=== PATIENT | female | born 1995 | race Caucasian/White ===

== ENCOUNTER → 2017-10-28 | Outpatient (CLI) | payer OTHER ==
[2017-10-28 13:13] LABS: HEP C IGG 13 YRS+OLDER_RFLX NEG (NEG)
== END | disposition home or self-care (01) ==
LOC: C.LAB1850 09:59
PROVIDERS: ATTEND Obstetrics & Gynecology
DX: Z11.3 Encounter for screening for infections with a predominantly sexual mode of transmission (principal); Z11.8 Encounter for screening for other infectious and parasitic diseases

== ENCOUNTER → 2017-10-28 | Outpatient (CLI) | payer OTHER | END | disposition home or self-care (01) | LOC: C.PAPS 11:37 | PROVIDERS: ATTEND Obstetrics & Gynecology | DX: Z01.419 Encounter for gynecological examination (general) (routine) without abnormal findings (principal) ==

== ENCOUNTER 2023-10-04 22:03 | Inpatient (IN) ==
[2023-10-04] MEDS ORDERED: LIDOCAINE 1% LOCAL 20 ML VIAL INFIL PRN (23:11)
[2023-10-04] MEDS ORDERED: OXYTOCIN 30 UNITS/NSS 30 UNITS/500 ML BAG IV PRN ×2 (23:11→23:13)
--- NOTE | 2023-10-04 23:19 | History & Physical Report ---
Date of Service October 04, 2023 Assessment & Plan (1) Large for gestational age fetus affecting management of mother: (2) SROM (spontaneous rupture of membranes): Plan 27 yo G1 at 38 4/7 wga admitted w/ srom VSS Fetus cat 1 labor - 2cm, ctx seen but pt not really feeling them. Discussed LGA baby w/ induction/augmentation process vs primary CS, risks of each including risk of shoulder dystocia. Also reviewed margin of error on US at this GA as well. Pt would like to try for vaginal delivery. Discussed expectant management, pit - will walk for a bit and if doesn't make change, she is ok to start pit GBS neg epidural prn History of Present Illness Chief Complaint: LOF Primary Care Provider: Mariola Parker MD 1 yo G1 at 38 4/7 wga presents w/ LOF since 930pm. Had a small gush and leaking since then. +FM; denies ctx, LOF, VB PNI: Suspected LGA Past DENTAL OFFICE MANAGER Hx: G1 regular cycles denies hx stis Allergies Allergy/AdvReac Type Severity Reaction Status Date / Time No Known Drug Allergies Allergy Verified 10/01/23 10:56 Home Medications Medication Instructions Recorded Confirmed Type prenat.vits,aron,ysl-ntcg-livau 1 tab PO DAILY 01/17/23 10/04/23 History Patient History Medical History (Updated 10/04/23 @ 23:17 by Anastasia Lyn MD) Varicella vaccination Migraine Sebaceous cyst Pilonidal cyst with abscess Dysmenorrhea Surgical History H/O wisdom tooth extraction Pilonidal cyst Sep 2012 Family History Grandfather (Paternal) Myocardial infarction Mother Anemia Thyroid disease Grandfather (Maternal) Hypertension Family/Other Breast cancer Colorectal cancer Ovarian cancer Other Cervical cancer Depression Dyslipidemia Endometriosis Gallbladder disease Uterine cancer Social History Smoking Status: Never smoker Second Hand Exposure: Yes; Do You Dip or Chew Tobacco: No; Hx Alcohol Use: No Hx Substance Use: No Preferred Language: German Communication Ability: Effective Visual Impairment: No Limitations Hearing Ability: Normal Television Equipment Operator Required: No Beliefs That Will Affect Care: None marital status: marital status details: Jai Haley (26) [phone] Current Living Situation: Spouse Current Living Situation Comment: lives with spouse, cat-spouse changing litter current occupational status: employed current occupation: [employer] Feels Safe at Home: Yes Safety Concerns: Feels Safe At This Time Childhood Exposure to Second-Hand Smoke: No Diet: regular caffeine: Yes Dental Care, Regularly: Yes Physical Activity Frequency: Daily Seatbelt Use: always Sunscreen Use: No Sexual Activity: has been sexually active within the last 12 months Physical Exam Genitourinary: OB Exam Abdomen: + vertex and + estimated weight (8-9) Manual OB Exam: + cervical dilation 2 cm, + cervical effacement 50%, + station - 2 and + amniotic fluid (+nitrazine, pooling, ferning) OB Exam Monitor Tracing: + external FHT monitor used, + external uterine monitor used (q4-7) and + category I (125/mod/+accel/-decel) Results & Data Vital Signs (Past 12 Hours) Vital Signs Temp Pulse Resp BP 10/04/23 22:29 79 122/72 10/04/23 22:22 98.6 F 18 Laboratory Results OB Labs: Blood Type A Positive 03/12/23 Antibody Screen NEGATIVE 03/12/23 Hemoglobin 11.9 g/dl (12.0-16.0) L 07/22/23 Hematocrit 36.2 % (37.0-47.0) L 07/22/23 Mean Corpuscular Volume 89.3 fL (80.0-100.0) 03/12/23 Platelet Count 272 K/uL (130-400) 03/12/23 Rubella IgG Antibody Immune (Immune) 03/12/23 Rapid Plasma Reagin Nonreactive (Nonreactive) 03/12/23 Hepatitis B Surface Antigen Neg (Neg) 12/07/19 Hepatitis B Surface Antigen. NON-REACTIVE (NON-REACTIVE) 03/12/23 Hepatitis C Antibody Neg (Neg) 12/07/19 Hepatitis C Antibody (EIA) NON-REACTIVE (NON-REACTIVE) 03/12/23 HIV (1&2) Ab and P24 Ag, 4th Gener Neg (Neg) 12/07/19 HIV (1&2) Ag and Ab Confirmation NON-REACTIVE (NON-REACTIVE) 03/12/23 Glucose 1 Hour 50 gm Load 122 mg/dl (70-130) 07/22/23 OB Optional Labs: Chlamydia trachomatis RNA Not Detected (NotDetected) 03/12/23 Neisseria gonorrhoeae RNA Not Detected (NotDetected) 03/12/23 Thyroid Stimulating Hormone (TSH) 2.647 uIu/ml (0.300-4.500) 01/20/23 Labs Reviewed: cf/sma-negative--mln Declines cfdna--mln declines afp--akh GBS neg Diagnostic Findings 09/16 EFW >98%, ant plac Coding Level of Care Code None Diagnoses Large for gestational age fetus affecting management of mother O36.60X0 SROM (spontaneous rupture of membranes)
[2023-10-04 23:39] LABS: Hematocrit (blood only) 34.4 % (37.0-47.0); Hemoglobin 11.7 g/dl (12.0-16.0); Mean Corpuscular Hemoglobin 31.3 pg (25.0-34.0); Mean Platelet Volume 10.6 fL (9.4-12.4); Platelet Count 222 K/uL (130-400); RDW Coefficient of Variation 13.2 % (11.5-14.5); RDW Standard Deviation 44.2 fL (36.4-46.3); Red Blood Count 3.74 M/uL (4.20-5.40); White Blood Count 7.73 K/ul (4.8-10.8)
[2023-10-05] MEDS: LACTATED RINGER'S 1,000 ML IV PRN ×3 (02:13→14:35)
[2023-10-05] MEDS ORDERED: fentANYL 2 MCG/ML BUPIVacaine 0.125%-NSS 100ML BAG ONE (03:53)
[2023-10-05] MEDS ORDERED: SODIUM CHLORIDE 0.9% PF INJ 10 ML VIAL ONE (03:53)
[2023-10-05] MEDS ORDERED: fentaNYL citrate PF 100 MCG/2 ML VIAL ONE (03:53)
[2023-10-05] MEDS ORDERED: ePHEDrine sulfate 50 MG/ML AMP ONE (03:53)
[2023-10-05] MEDS ORDERED: BUPIVACAINE 0.25% PF 30 ML VIAL ONE (03:54)
[2023-10-05] MEDS ORDERED: LIDOCAINE 2%/EPINEPHRINE 1:200,000 20 ML PF ONE (03:54)
[2023-10-05] MEDS ORDERED: ePHEDrine sulfate 50 MG/ML AMP IV PRN (04:23)
[2023-10-05] MEDS ORDERED: BUPIVACAINE 0.25% PF 30 ML VIAL EPI STA (04:23)
[2023-10-05] MEDS ORDERED: NALOXONE HCL 1 MG in SODIUM CHLORIDE 0.9% 1,000 ML IV PRN (04:23)
[2023-10-05] MEDS ORDERED: BUPIVACAINE 0.25% PF 30 ML VIAL EPI PRN (04:23)
[2023-10-05] MEDS ORDERED: fentaNYL citrate PF 100 MCG/2 ML VIAL EPI PRN (04:23)
[2023-10-05] MEDS ORDERED: ROPIVACAINE 0.5% PF 5 MG/ML 20 ML VIAL EPI PRN (04:23)
[2023-10-05] MEDS ORDERED: diphenhydrAMINE 50 MG/ML VIAL IV PRN (04:23)
[2023-10-05] MEDS ORDERED: ONDANSETRON INJ 2 MG/ML 2 ML VIAL IV PRN (04:23)
[2023-10-05] MEDS ORDERED: SODIUM CHLORIDE 0.9% PF INJ 10 ML VIAL EPI STA (04:23)
[2023-10-05] MEDS ORDERED: fentaNYL citrate PF 100 MCG/2 ML VIAL EPI STA (04:23)
[2023-10-05] MEDS ORDERED: NALBUPHINE HCL 5 MG in SYRINGE 0 ML IV PRN (04:23)
[2023-10-05] MEDS ORDERED: LIDOCAINE 2% MPF LOCAL 5 ML VIAL EPI PRN (04:23)
[2023-10-05] MEDS ORDERED: LIDOCAINE 2%/EPINEPHRINE 1:200,000 20 ML PF EPI STA (04:23)
[2023-10-05] MEDS ORDERED: NALOXONE HCL 0.4 MG/1 ML VIAL/CARP IV PRN (04:23)
[2023-10-05] MEDS ORDERED: SODIUM CHLORIDE 0.9% PF INJ 10 ML VIAL EPI PRN (04:23)
--- NOTE | 2023-10-05 04:23 | Anesthesiology Consultation ---
Date of Service October 05, 2023 Assessment & Plan ASA ASA2 Proposed Anesthesia Anesthesia Type: Labor Epidural Risk / Benefits Reviewed With: PT / POA / Parent / Guardian, Accepts Plan and Informed Consent Obtained History Height/Weight Height: 5 ft 1 in Weight: 80.286 kg Allergies Allergy/AdvReac Type Severity Reaction Status Date / Time No Known Drug Allergies Allergy Verified 10/01/23 10:56 Medications Home Medications Medication Instructions Recorded Confirmed Last Taken prenat.vits,aron,gde-zhrr-yvhef 1 tab PO DAILY 01/17/23 10/04/23 10/03/23 Active Medications Generic Name Dose Route Start Last Admin Trade Name Freq PRN Reason Stop Dose Admin Oxytocin 30 units in 500 mls @ 4 mls/hr 10/04/23 23:13 10/05/23 03:00 Pitocin 30 Units/Nss IV 10/06/23 23:12 0.24 units/hr .Q24H PRN 4 mls/hr Labor Induction/Augmentation Titration Protocol 0.24 UNITS/HR Lactated Ringer's 1,000 mls @ 125 mls/hr 10/04/23 23:11 10/05/23 04:58 Lr IV 10/06/23 23:10 125 mls/hr .Q8H PRN Administration L&D Protocol Protocol Past Medical History Medical History Varicella vaccination Migraine Sebaceous cyst Pilonidal cyst with abscess Dysmenorrhea Exercise / Class Metabolic Activity II 4-5 Yardwork/Stairs/Walk up hill Past Family History Family History Grandfather (Paternal) Myocardial infarction Late 40's. Smoker. Mother Anemia Thyroid disease Grandfather (Maternal) Hypertension Family/Other Breast cancer Colorectal cancer Ovarian cancer Other Cervical cancer Depression Dyslipidemia Endometriosis Gallbladder disease Uterine cancer Past Surgical History Surgical History H/O wisdom tooth extraction Pilonidal cyst Sep 2012 Past Anesthesia History No Hx of Anesthesia Complications and No Family Hx of Anesthesia Complications History of PONV No Hx of PONV and No Hx of Motion Sickness Social History Smoking Status: Never smoker Do You Dip or Chew Tobacco: No Hx Alcohol Use: No Hx Substance Use: No Review of Systems denies fever/cough/ colds/ chest pain/ SOB/ AN denies AN Physical Exam Vital Signs Last Vital Signs Temp 36.8 C 10/05/23 02:02 Pulse 79 10/05/23 05:01 Resp 18 10/05/23 02:02 BP 120/60 10/05/23 05:01 Pulse Ox 100 10/05/23 04:59 ENMT Mouth: no TMJ abnormality and no dentition abnormality Thyromental Distance: > or= 3.5 Finger Breadths Mallampati Class: II Neck neck extension not limited Respiratory normal respiratory effort; no respiratory distress Auscultation: lungs clear to auscultation bilaterally Cardiovascular Rate/Rhythm: regular rate and regular rhythm Neurologic moves all extremities Psychiatric Orientation: alert and oriented x 3 Testing Laboratory Results 10/04/23 23:21 Blood Type A Positive 10/04/23 23:21 Antibody Screen NEGATIVE 10/04/23 23:21
--- NOTE | 2023-10-05 08:05 | Labor Progress Brief Note ---
Date of Service October 05, 2023 Subjective Comfortable w/ epidrual Assessment & Plan (1) Large for gestational age fetus affecting management of mother: (2) SROM (spontaneous rupture of membranes): Plan 27 yo G1 at 38 4/7 wga admitted w/ srom VSS Fetus cat 1 labor - pit at 10, progress noted. Continue induction GBS neg epidural in place Admission and Anticipated Discharge Date Admission Date: October 04, 2023 Physical Exam Genitourinary: Manual OB Exam: + cervical dilation (3.5), + cervical effacement 70% and + station -2 OB Exam Monitor Tracing: + external FHT monitor used, + external uterine monitor used (q5) and + category I (125/mod/+accel/-decel) Results & Data Vital Signs (Past 12 Hours) Vital Signs Temp Pulse Resp BP Pulse Ox 10/05/23 08:00 88 118/67 10/05/23 07:59 74 97 10/05/23 07:54 100 H 99 10/05/23 07:49 64 97 10/05/23 07:45 67 109/67 10/05/23 07:44 67 97 10/05/23 07:39 92 H 98 10/05/23 07:34 73 97 10/05/23 07:29 98 10/05/23 07:29 103 H 10/05/23 07:29 101 H 114/70 10/05/23 07:24 88 98 10/05/23 07:19 80 98 10/05/23 07:15 98.2 F 71 20 117/71 10/05/23 07:14 82 98 10/05/23 07:09 76 97 10/05/23 07:04 79 97 10/05/23 07:00 67 110/70 10/05/23 06:59 68 96 10/05/23 06:54 68 96 10/05/23 06:49 68 95 10/05/23 06:45 69 93 10/05/23 06:44 69 119/69 94 10/05/23 06:39 70 95 10/05/23 06:37 70 93 10/05/23 06:34 78 96 10/05/23 06:29 96 10/05/23 06:29 73 10/05/23 06:29 68 118/67 10/05/23 06:24 76 96 10/05/23 06:19 68 96 10/05/23 06:16 67 115/67 10/05/23 06:14 63 96 10/05/23 06:09 87 96 10/05/23 06:04 71 96 10/05/23 06:00 98.6 F 62 118/67 10/05/23 05:59 62 96 10/05/23 05:54 67 97 10/05/23 05:49 74 96 10/05/23 05:44 68 120/67 96 10/05/23 05:40 71 96 10/05/23 05:34 67 96 10/05/23 05:30 66 10/05/23 05:30 69 120/68 97 10/05/23 05:24 77 97 10/05/23 05:19 73 98 10/05/23 05:14 77 98 10/05/23 05:13 81 113/66 10/05/23 05:11 78 112/65 10/05/23 05:09 74 105/59 L 98 10/05/23 05:07 82 101/64 10/05/23 05:05 86 119/76 10/05/23 05:04 80 99 10/05/23 05:03 84 123/66 10/05/23 05:01 79 120/60 10/05/23 04:59 100 10/05/23 04:59 74 10/05/23 04:59 80 121/63 10/05/23 04:57 74 120/64 10/05/23 04:55 70 128/67 10/05/23 04:54 83 100 10/05/23 04:49 71 100 10/05/23 04:44 73 100 10/05/23 04:39 87 100 10/05/23 04:10 98.6 F 10/05/23 04:00 77 120/61 10/05/23 03:00 101 H 110/70 10/05/23 02:02 98.2 F 86 18 115/70 10/05/23 00:31 98.4 F 10/04/23 22:29 79 122/72 10/04/23 22:22 98.6 F 18 Coding Level of Care Code None Diagnoses Large for gestational age fetus affecting management of mother O36.60X0 SROM (spontaneous rupture of membranes)
[2023-10-05] MEDS: fentANYL 2 MCG/ML BUPIVacaine 0.125%-NSS 100ML BAG EPI PRN ×2 (10:46→17:24)
--- NOTE | 2023-10-05 17:18 | Labor Progress Brief Note ---
Date of Service October 05, 2023 Subjective Comfortable w/ redose Assessment & Plan (1) Large for gestational age fetus affecting management of mother: (2) SROM (spontaneous rupture of membranes): Plan 27 yo G1 at 38 4/7 wga admitted w/ srom VSS Fetus cat 1 labor - pit at 10, now complete but no sensation of pressure. Will labor down GBS neg epidural in place Admission and Anticipated Discharge Date Admission Date: October 04, 2023 Physical Exam Genitourinary: Manual OB Exam: + cervical dilation 10 cm, + cervical effacement 100% and + station + 2 OB Exam Monitor Tracing: + external FHT monitor used, + external uterine monitor used (q3-5) and + category I (125/mod/+accel/-decel) Results & Data Vital Signs (Past 12 Hours) Vital Signs Temp Pulse Resp BP Pulse Ox 10/05/23 17:14 70 100 10/05/23 17:13 73 93 10/05/23 17:09 63 100 10/05/23 17:04 59 L 100 10/05/23 17:00 61 94/53 L 10/05/23 16:59 58 L 97/53 L 100 10/05/23 16:54 62 99 10/05/23 16:49 58 L 99 10/05/23 16:45 60 94/51 L 10/05/23 16:44 60 99 10/05/23 16:43 20 10/05/23 16:43 99.5 F 20 10/05/23 16:39 70 100 10/05/23 16:34 62 99 10/05/23 16:30 75 106/57 L 10/05/23 16:29 75 99 10/05/23 16:24 69 99 10/05/23 16:19 65 100 10/05/23 16:16 65 20 96/53 L 10/05/23 16:14 70 100 10/05/23 16:09 74 99 10/05/23 16:04 76 99 10/05/23 16:00 18 10/05/23 16:00 18 10/05/23 15:59 76 105/57 L 98 10/05/23 15:54 67 98 10/05/23 15:49 72 99 10/05/23 15:45 68 105/63 10/05/23 15:44 62 99 10/05/23 15:39 75 98 10/05/23 15:34 69 98 10/05/23 15:30 64 105/62 10/05/23 15:29 72 98 10/05/23 15:24 66 97 10/05/23 15:19 64 97 10/05/23 15:15 74 18 124/59 L 10/05/23 15:14 70 97 10/05/23 15:13 58 L 94 10/05/23 15:09 66 97 10/05/23 15:04 69 98 10/05/23 15:00 20 10/05/23 15:00 98.6 F 20 10/05/23 14:59 96 10/05/23 14:59 62 10/05/23 14:59 63 107/65 10/05/23 14:54 61 97 10/05/23 14:49 65 97 10/05/23 14:44 98.6 F 64 20 112/70 97 10/05/23 14:39 69 97 10/05/23 14:34 66 98 10/05/23 14:29 68 113/70 98 10/05/23 14:24 62 98 10/05/23 14:19 63 96 10/05/23 14:16 57 L 99/54 L 10/05/23 14:14 60 96 10/05/23 14:09 65 95 10/05/23 14:04 60 95 10/05/23 14:00 62 96/53 L 10/05/23 13:59 65 97 10/05/23 13:54 61 96 10/05/23 13:49 64 95 10/05/23 13:44 62 92/53 L 96 10/05/23 13:41 62 94 10/05/23 13:39 66 95 10/05/23 13:34 62 95 10/05/23 13:33 60 94 10/05/23 13:29 95 10/05/23 13:29 63 10/05/23 13:29 62 91/54 L 10/05/23 13:24 60 96 10/05/23 13:19 63 95 10/05/23 13:14 60 93/55 L 96 10/05/23 13:09 64 97 10/05/23 13:04 64 97 10/05/23 12:59 98 10/05/23 12:59 76 10/05/23 12:59 98.4 F 64 20 97/54 L 10/05/23 12:54 73 99 10/05/23 12:49 70 98 10/05/23 12:44 98 10/05/23 12:44 87 10/05/23 12:44 81 106/64 10/05/23 12:39 80 98 10/05/23 12:34 72 97 10/05/23 12:30 67 20 107/62 10/05/23 12:29 70 98 10/05/23 12:24 73 98 10/05/23 12:19 84 98 10/05/23 12:14 96 10/05/23 12:14 69 10/05/23 12:14 65 105/60 10/05/23 12:09 84 98 10/05/23 12:04 78 98 10/05/23 11:59 73 20 109/62 96 10/05/23 11:54 71 96 10/05/23 11:49 68 96 10/05/23 11:44 96 10/05/23 11:44 68 10/05/23 11:44 64 111/63 10/05/23 11:41 20 10/05/23 11:41 20 10/05/23 11:39 78 97 10/05/23 11:34 72 97 10/05/23 11:29 72 110/63 97 10/05/23 11:24 72 96 10/05/23 11:19 70 98 10/05/23 11:14 98 10/05/23 11:14 73 10/05/23 11:14 74 110/62 10/05/23 11:09 70 97 10/05/23 11:07 20 10/05/23 11:07 98.4 F 20 10/05/23 11:04 69 98 10/05/23 10:59 76 113/66 98 10/05/23 10:54 71 98 10/05/23 10:49 70 100 10/05/23 10:45 68 113/65 10/05/23 10:44 69 100 10/05/23 10:39 70 100 10/05/23 10:34 86 98 10/05/23 10:30 65 20 106/59 L 10/05/23 10:29 66 97 10/05/23 10:24 65 96 10/05/23 10:19 71 97 12/31/23 10:14 97 10/05/23 10:14 65 10/05/23 10:14 67 101/58 L 10/05/23 10:09 73 96 10/05/23 10:04 87 98 10/05/23 09:59 89 20 110/69 96 10/05/23 09:54 79 97 10/05/23 09:49 75 96 10/05/23 09:45 71 105/64 10/05/23 09:44 75 97 10/05/23 09:39 68 96 10/05/23 09:34 69 97 10/05/23 09:29 75 18 105/61 97 10/05/23 09:24 72 98 10/05/23 09:19 68 96 10/05/23 09:14 98 10/05/23 09:14 76 10/05/23 09:14 75 110/63 10/05/23 09:09 73 95 10/05/23 09:04 75 95 10/05/23 08:59 98.2 F 69 20 113/63 96 10/05/23 08:54 72 96 10/05/23 08:49 74 96 10/05/23 08:44 77 116/65 96 10/05/23 08:39 62 95 10/05/23 08:34 67 97 10/05/23 08:30 62 106/51 L 10/05/23 08:29 71 97 10/05/23 08:24 71 97 10/05/23 08:19 71 97 10/05/23 08:15 68 109/64 10/05/23 08:14 75 97 10/05/23 08:09 79 98 10/05/23 08:04 75 97 10/05/23 08:00 88 18 118/67 10/05/23 07:59 74 97 10/05/23 07:54 100 H 99 10/05/23 07:49 64 97 10/05/23 07:45 67 109/67 10/05/23 07:44 67 97 10/05/23 07:39 92 H 98 10/05/23 07:34 73 97 10/05/23 07:29 98 10/05/23 07:29 103 H 10/05/23 07:29 101 H 18 114/70 10/05/23 07:24 88 98 10/05/23 07:19 80 98 10/05/23 07:15 98.2 F 71 20 117/71 10/05/23 07:14 82 98 10/05/23 07:09 76 97 10/05/23 07:04 79 97 10/05/23 07:00 67 110/70 10/05/23 06:59 68 96 10/05/23 06:54 68 96 10/05/23 06:49 68 95 10/05/23 06:45 69 93 10/05/23 06:44 69 119/69 94 10/05/23 06:39 70 95 10/05/23 06:37 70 93 10/05/23 06:34 78 96 10/05/23 06:29 96 10/05/23 06:29 73 10/05/23 06:29 68 118/67 10/05/23 06:24 76 96 10/05/23 06:19 68 96 10/05/23 06:16 67 115/67 10/05/23 06:14 63 96 10/05/23 06:09 87 96 10/05/23 06:04 71 96 10/05/23 06:00 98.6 F 62 118/67 10/05/23 05:59 62 96 10/05/23 05:54 67 97 10/05/23 05:49 74 96 10/05/23 05:44 68 120/67 96 10/05/23 05:40 71 96 10/05/23 05:34 67 96 10/05/23 05:30 66 10/05/23 05:30 69 120/68 97 10/05/23 05:24 77 97 10/05/23 05:19 73 98 Coding Level of Care Code None Diagnoses Large for gestational age fetus affecting management of mother O36.60X0 SROM (spontaneous rupture of membranes)
[2023-10-05] MEDS ORDERED: NURSING L&D Epidural Breakthrough Pain Update ONE (17:36)
--- NOTE | 2023-10-05 21:49 | Delivery Summary ---
Vaginal Delivery Summary Date of Service October 05, 2023 Vaginal Delivery Summary and 2nd Degree LAC PREOPERATIVE DIAGNOSIS: 1. Single intrauterine at 38 5/7 wga 2. SROM 3. Suspected LGA POSTOPERATIVE DIAGNOSIS: 1. Single intrauterine at 38 5/7 wga 2. SROM 3. Suspected LGA 4. Delivered PROCEDURE: 1. Normal spontaneous vaginal delivery. SURGEON: Anastasia Lyn MD ANESTHESIA: Epidural. ESTIMATED BLOOD LOSS: 300 mL FLUIDS: Continuous LR. URINE OUTPUT: None. COMPLICATIONS: None. CONDITION: Stable. INDICATIONS: 27 yo G1 at 38 5/7 wga presented last evening w/ c/o LOF and found to be SROM. She was started on pitocin and received an epidural for pain control. She then progressed to complete and desired to push FINDINGS: A viable male infant, weight pending with Apgars of 8 and 9 at 1 and 5 minutes respectively. SPECIMEN: Cord blood OPERATIVE REPORT: The patient progressed to 10 cm, 100% effaced and +2 station, pushed over intact perineum with anesthesia to deliver a viable male infant, weight and Apgars as above. Head of delivered in WILLIAM position. Loose nuchal cord was noted and delivered through. Body and shoulders were delivered without difficulty. was delivered to maternal abdomen and nursing staff. Delayed cord clamping was performed for 60 seconds. Cord was clamped and cut. Cord blood was obtained. Placenta delivered spontaneously intact with 3-vessel cord. IV oxytocin and fundal massage were given for excellent hemostasis. Vagina, cervix, perineum, and placenta were inspected. A second degree laceration was noted and repaired in the usual fashion. There was excellent hemostasis. Sponge and needle counts correct x2. No sponges were left behind. Mother and stable in immediate period. [facility] Vaginal Delivery Charge Vaginal Delivery Codes: 03539 global code for the antepartum, delivery, and post- Delivery Type Details: and 2nd Degree LAC
[2023-10-05] MEDS ORDERED: OXYTOCIN 30 UNITS/NSS 30 UNITS/500 ML BAG IV PRN (21:51)
[2023-10-05] MEDS ORDERED: HYDROCORTISONE ACETATE 25 MG SUPP PR PRN (21:51)
[2023-10-05] MEDS ORDERED: DIPHTHERIA/TETANUS/PERTUSSIS Vaccine (Tdap, Age 7+yrs) 0.5mL SYR/VL IM ONE (21:51)
[2023-10-05] MEDS ORDERED: ACETAMINOPHEN 325 MG TAB PO PRN (21:51)
[2023-10-05] MEDS ORDERED: BENZOCAINE 20% SPRY 85 APPLN/85 GM CAN EXT PRN (21:51)
[2023-10-05] MEDS: IBUPROFEN 600 MG TAB PO PRN (22:00)
[2023-10-05] MEDS: oxyCODONE/ACETAMINOPHEN 5mg/325mg TAB PO PRN (22:31)
[2023-10-06] MEDS: IBUPROFEN 600 MG TAB PO PRN ×5 (02:48→23:22)
[2023-10-06] MEDS: oxyCODONE/ACETAMINOPHEN 5mg/325mg TAB PO PRN ×2 (02:48→07:38)
[2023-10-06] MEDS: PRENATAL VITAMIN 1 TAB PO SCH (07:35)
[2023-10-06] MEDS: DOCUSATE SODIUM 100 MG CAP PO SCH ×2 (07:35→19:52)
[2023-10-06] MEDS: FERROUS SULFATE 325 MG TAB PO SCH (07:35)
--- NOTE | 2023-10-06 08:14 | Obstetrical Progress Note ---
Date of Service October 06, 2023 Assessment & Plan (1) Encounter for care and examination after delivery: 27 yo PP1 from , doing well -Meeting all pp milestones -A+/rubella immune/ -f/u 6 weeks for appt, continue rout care Subjective Ambulation: ambulating normally Voiding: no voiding problems Passing Gas:: Yes Diet Tolerance:: regular diet Lochia:: Small Feeding Type:: bottle feeding Pain well managed with medication Review of Systems Denies fevers, chills, n/v, STANLEY, CP, SOB Physical Exam Constitutional WD/WN, vitals as above no acute distress Respiratory normal respiratory effort, lungs clear to auscultation Cardiovascular RRR, no murmur, no edema Gastrointestinal (Abdomen) Percussion/Palpation: abdomen soft; abdomen nontender fundus firm at umbilicus and NT Musculoskeletal BLE symmetric, nonerythematous, nontender Results & Data Vital Signs (Past 12 Hours) Vital Signs Temp Pulse Pulse Pulse Resp BP BP 10/06/23 07:31 97.7 F 75 16 101/68 10/06/23 03:30 98.2 F 63 17 103/60 10/06/23 00:40 98.4 F 85 17 106/70 10/05/23 23:46 86 113/57 L 10/05/23 23:45 98.2 F 18 10/05/23 23:31 96 H 116/58 L 10/05/23 23:16 84 120/58 L 10/05/23 23:15 98.4 F 18 10/05/23 23:01 77 120/62 10/05/23 22:46 78 124/66 10/05/23 22:45 98.6 F 18 10/05/23 22:31 76 127/62 10/05/23 22:30 98.6 F 18 10/05/23 22:19 71 129/65 10/05/23 22:15 98.6 F 18 10/05/23 22:01 81 133/61 10/05/23 22:00 98.6 F 18 10/05/23 21:50 101 H 155/94 H 10/05/23 21:45 99.3 F 18 10/05/23 21:42 84 10/05/23 21:37 86 10/05/23 21:32 81 10/05/23 21:29 81 121/64 10/05/23 21:27 80 10/05/23 21:22 78 10/05/23 21:17 78 10/05/23 21:15 80 117/56 L 10/05/23 21:12 79 10/05/23 21:07 84 10/05/23 21:02 75 10/05/23 21:00 18 10/05/23 21:00 98.8 F 18 10/05/23 20:59 78 124/59 L 10/05/23 20:57 84 10/05/23 20:55 80 10/05/23 20:52 107 H 10/05/23 20:47 75 10/05/23 20:44 96 H 10/05/23 20:42 71 10/05/23 20:36 74 10/05/23 20:31 73 10/05/23 20:30 98 H 10/05/23 20:29 71 107/65 10/05/23 20:26 85 10/05/23 20:21 80 10/05/23 20:18 72 10/05/23 20:16 70 Pulse Ox O2 Del Method 10/06/23 07:31 98 Room Air 10/06/23 03:30 99 Room Air 10/06/23 00:40 98 Room Air 10/05/23 23:46 10/05/23 23:45 10/05/23 23:31 10/05/23 23:16 10/05/23 23:15 10/05/23 23:01 10/05/23 22:46 10/05/23 22:45 10/05/23 22:31 10/05/23 22:30 10/05/23 22:19 10/05/23 22:15 10/05/23 22:01 10/05/23 22:00 10/05/23 21:50 10/05/23 21:45 10/05/23 21:42 100 10/05/23 21:37 100 10/05/23 21:32 99 10/05/23 21:29 10/05/23 21:27 99 10/05/23 21:22 97 10/05/23 21:17 98 10/05/23 21:15 10/05/23 21:12 97 10/05/23 21:07 99 10/05/23 21:02 99 10/05/23 21:00 10/05/23 21:00 10/05/23 20:59 10/05/23 20:57 99 10/05/23 20:55 88 L 10/05/23 20:52 96 10/05/23 20:47 98 10/05/23 20:44 87 L 10/05/23 20:42 98 10/05/23 20:36 98 10/05/23 20:31 98 10/05/23 20:30 93 10/05/23 20:29 10/05/23 20:26 99 10/05/23 20:21 100 10/05/23 20:18 90 10/05/23 20:16 98
--- NOTE | 2023-10-06 09:15 | Anesthesia Procedure Note ---
Date of Service October 06, 2023 Anesthesia Post Epidural Note Vital Signs Vital Signs: Temp Pulse Resp BP Pulse Ox O2 Del Method 36.5 C 75 16 101/68 98 Room Air 10/06/23 07:10/06/23 07:10/06/23 07:10/06/23 07:10/06/23 07:10/06/23 07:40 Pain Intensity Bilateral Abdomen: Pain Intensity: 10 Bilateral Shoulder: Pain Intensity: 0 Back: Pain Intensity: 4 Notes Mental Status: alert / awake / arousable Nausea / Vomiting: adequately controlled Pain: adequately controlled Airway Patency, RR, SpO2: stable & adequate BP & HR: stable & adequate Hydration State: stable & adequate Neuraxial Anesthesia: was administered and sensory block is resolving Anesthetic Complications: no major complications apparent and Pt Satisfied with anesthetic care Epidural: Removed without complications and With tip intact
[2023-10-06] MEDS ORDERED: LIDOCAINE 2% JELLY 5 ML TUBE EXT ONE (11:13)
[2023-10-06] MEDS ORDERED: bisacodyL 5 MG TABEC PO SCH (20:00)
[2023-10-07] MEDS ORDERED: bisacodyL 10 MG SUPP PR PRN
[2023-10-07] MEDS: IBUPROFEN 600 MG TAB PO PRN ×4 (03:45→18:41)
--- NOTE | 2023-10-07 07:42 | Obstetrical Progress Note ---
Date of Service October 07, 2023 Assessment & Plan (1) Encounter for care and examination after delivery: Plan doing well. no issues today. discussed concerning sx for dvt/pe but she has none currently. she will monitor and let us know if anything changes. will dc home today to [facility]. instructions and followup reviewed, 6wk pp check. Day #:: 2 Subjective Ambulation: ambulating normally Voiding: no voiding problems Diet Tolerance:: regular diet Lochia:: Small Feeding Type:: bottle feeding currently denies cp or sob or any leg pain. i was notified through the night of various sx pt had, none seemingly occurring at same time. last time she had right calf pain was >36hrs ago. last time she has been up and to nursery (baby on iv due to low blood sugar) she denied any sob. she is sitting in her bed and feels well. Constitutional: + as per Subjective / HPI Physical Exam Constitutional WD/WN, vitals as above Respiratory normal respiratory effort, lungs clear to auscultation Cardiovascular Rate/Rhythm: regular rate and regular rhythm Gastrointestinal (Abdomen) Inspection/Auscultation: abdomen normal to inspection Percussion/Palpation: abdomen soft Fundus firm 2cm down Musculoskeletal nt calves no edema calves equal bilaterally in size. no cord no erythema. Neurologic grossly normal Psychiatric A+Ox3, euthymic affect Results & Data Vital Signs (Past 12 Hours) Vital Signs Temp Pulse Resp BP Pulse Ox O2 Del Method 10/07/23 03:40 98.1 F 77 18 112/63 99 Room Air 10/07/23 01:00 98.1 F 91 H 18 121/75 98 Room Air 10/06/23 23:20 98.6 F 83 18 108/70 98 Room Air
[2023-10-07] MEDS: DOCUSATE SODIUM 100 MG CAP PO SCH (08:32)
[2023-10-07] MEDS: PRENATAL VITAMIN 1 TAB PO SCH (08:32)
[2023-10-07] MEDS: FERROUS SULFATE 325 MG TAB PO SCH (08:32)
--- NOTE | 2023-10-07 13:49 | Ultrasound Report ---
ULTRASOUND RIGHT LOWER EXTREMITY VENOUS CLINICAL HISTORY: Right calf pain. Recent delivery. COMPARISON STUDY: No priors. TECHNIQUE: Real-time, grayscale, and color Doppler sonography of the deep veins of the right lower ex tremity was performed from the inguinal crease to the calf. Compression and augmentation were utilize d. FINDINGS: There is no sonographic evidence of deep venous thrombosis identified in the right lower ex tremity. The common femoral, superficial femoral, and popliteal veins are patent and normally bibiana sible. The greater saphenous vein and the profunda femoris vein at the junction with the common femor al vein are clear. The visualized calf veins are patent. IMPRESSION: There is no sonographic evidence of deep venous thrombosis identified in the right lower extremity. ACT 112: Negative or not required by law. Electronically signed by: Charlie Hernández M.D. 10/07/2023 1:47 PM
== END 2023-10-07 18:46 | disposition home or self-care (01) | DRG 807 ==
LOC: OPB 22:03 → 4S1 22:05 → 4E2 10-06 00:37